=== PATIENT | female | born 1980 | race African-American/Black ===

== ENCOUNTER 2017-05-06 12:51 | Emergency (ER) | payer MEDICAID ==
[~2017-05-06] VITALS: Ht 170.2 cm; Wt 116.6 kg
[2017-05-06 13:14] VITALS: BP 149/91
[2017-05-06] MEDS ORDERED: traMADol HCL 50 MG TAB PO ONE (13:45)
[2017-05-06] MEDS ORDERED: traMADol HCL 50 MG TAB ONE (13:46)
== END 2017-05-06 14:14 | disposition home or self-care (01) ==
LOC: ER 12:51
DX: S39.012A Strain of muscle, fascia and tendon of lower back, initial encounter (principal); E66.01 Morbid (severe) obesity due to excess calories; M54.30 Sciatica, unspecified side; Z98.84 Bariatric surgery status; V43.62XA Car passenger injured in collision with other type car in traffic accident, initial encounter; Y93.89 Activity, other specified; Y92.488 Other paved roadways as the place of occurrence of the external cause; Y99.8 Other external cause status
CPT/HCPCS: 72100

== ENCOUNTER 2017-07-27 12:46 | Emergency (ER) | payer MEDICAID ==
[~2017-07-27] VITALS: Ht 167.6 cm; Wt 112.0 kg
[2017-07-27 13:30] VITALS: BP 170/94
[2017-07-27] MEDS ORDERED: IBUPROFEN 800 MG TAB PO ONE (14:30)
== END 2017-07-27 17:44 | disposition home or self-care (01) ==
LOC: ER 12:46
DX: S70.12XA Contusion of left thigh, initial encounter (principal); R10.2 Pelvic and perineal pain; V09.20XA Pedestrian injured in traffic accident involving unspecified motor vehicles, initial encounter; Y93.89 Activity, other specified; Y92.89 Other specified places as the place of occurrence of the external cause; Y99.8 Other external cause status
CPT/HCPCS: 72170

== ENCOUNTER 2017-10-15 09:09 | Emergency (ER) | payer MEDICAID ==
[~2017-10-15] VITALS: Ht 167.6 cm; Wt 104.3 kg
[2017-10-15 09:15] VITALS: BP 110/70
[2017-10-15] MEDS ORDERED: cefTRIAXone SOD 1,000 MG VL IM ONE (10:30)
[2017-10-15] MEDS ORDERED: methylPREDNISolone SOD SUCC 125 MG/2 ML VL IM ONE (10:30)
== END 2017-10-15 10:55 | disposition home or self-care (01) ==
LOC: ER 09:09
DX: J03.90 Acute tonsillitis, unspecified (principal)
CPT/HCPCS: 96372; 99284; J0696; J2930